=== PATIENT | female | born 1940 | race Two or more races ===

== ENCOUNTER 2024-04-07 09:44 | Emergency (ER) | payer MEDICAID, OTHER ==
[~2024-04-07] VITALS: Ht 180.3 cm; Wt 81.8 kg
[2024-04-07 11:51] VITALS: BP 128/74; PULSE 75; RESP 16; TEMP 97.9; O2SAT 97
[2024-04-07] MEDS: HYDROcodone-ACET 5/325MG TAB PO ONE (12:41)
[2024-04-07] MEDS ORDERED: AML5T PO (13:03)
[2024-04-07] MEDS ORDERED: HYDR-4902 PO (13:04)
== END 2024-04-07 13:15 | disposition home or self-care (01) ==
LOC: ER 09:44
DX: S62.002A Unspecified fracture of navicular [scaphoid] bone of left wrist, initial encounter for closed fracture (principal); X58.XXXA Exposure to other specified factors, initial encounter; Y93.89 Activity, other specified; Y92.89 Other specified places as the place of occurrence of the external cause; Y99.8 Other external cause status
CPT/HCPCS: 29125; 73110

== ENCOUNTER 2024-05-12 20:59 | Emergency (ER) | payer MEDICAID ==
[~2024-05-12] VITALS: Ht 154.9 cm; Wt 80.0 kg
[~2024-05-12 20:59] MED LIST: HYDR-4902 PO
[2024-05-12 21:34] LABS: Basophils # (auto) 0 10 ^3/uL (0-0.2); Basophils % (auto) 0.3 % (0.0-2.0); Eosinophils # (auto) 0 10 ^3/uL (0-0.8); Hemoglobin 14.2 g/dL (12.2-16.2); Lymphocytes # (auto) 0.4 10 ^3/uL (0.4-5.4); Lymphocytes % (auto) 4.5 % (10.0-50.0); Mean Corpuscular Hemoglobin 32.6 pg (28.0-32.0); Mean Corpuscular Volume 98.7 fL (80.0-100.0); Monocytes # (auto) 0.3 10 ^3/uL (0-1.3); Neutrophils # (auto) 8.8 10 ^3/uL (1.6-8.6); Neutrophils % (auto) 92.2 % (37.0-80.0); Nucleated Red Blood Cells % 0.1 %; Red Blood Cells 4.36 10^6/uL (4.0-5.20); Red Cell Distribution Width 13.8 % (11.8-14.3); White Blood Cell 9.5 10^3/uL (4.4-10.8)
[2024-05-12 22:01] LABS: Albumin 4.5 g/dL (3.2-4.8); Alkaline Phosphatase 65 U/L (46-116); Anion Gap 8 (5-15); Aspartate Aminotransferase 14 U/L (13-40); BUN/Creatinine Ratio 14.8 (10.0-20.0); Bilirubin, Total 0.4 mg/dL (0.2-1.0); Blood Urea Nitrogen 13 mg/dL (9-23); Calcium 9.5 mg/dL (8.7-10.4); Carbon Dioxide 22 mmol/L (20-30); Chloride 105 mmol/L (98-107); Glucose 139 mg/dL (74-106); Potassium 4.1 mmol/L (3.5-5.1); Sodium 135 mmol/L (136-145)
[2024-05-12 22:02] LABS: Total Protein 7.5 g/dL (5.7-8.2)
[2024-05-12 22:15] LABS: Alanine Aminotransferase < 9 U/L (7-40)
[2024-05-12 23:16] LABS: Urine Bacteria None Seen /hpf (None Seen)
[2024-05-12 23:29] LABS: Urine Blood TRACE /uL (Negative); Urine Clarity Turbid (Clear); Urine Color Light-Orange (Yellow); Urine Mucus FEW (None Seen); Urine Protein, UAD 1+ (Negative); Urine Specific Gravity 1.024 (1.001-1.035); Urine Urobilinogen Normal (Negative); Urine WBC 5 /hpf (0 - 5); Urine pH 5.5 (5.0-9.0)
[2024-05-13 03:50] VITALS: BP 115/63; PULSE 70; RESP 22; O2SAT 98
== END 2024-05-13 04:05 | disposition home or self-care (01) ==
LOC: ER 20:59
DX: R07.89 Other chest pain (principal); I10 Essential (primary) hypertension; Z79.899 Other long term (current) drug therapy
CPT/HCPCS: 36415; 71045; 80053; 81001; 83880; 84484; 85025; 93005